=== PATIENT | female | born 1935 ===

== ENCOUNTER 2016-11-25 17:23 | Emergency (ER) | payer MEDICARE, OTHER ==
[2016-11-25 18:12] VITALS: BMI 29.2
[2016-11-25 18:17] VITALS: RESP 18; TEMP 98; O2SAT 98
--- NOTE | 2016-11-25 18:26 | ED PDOC ---
Arrival/HPI - General Chief Complaint: Trauma Time Seen by Provider: 11/25/16 18:25 Historian: Patient - History of Present Illness Narrative History of Present Illness (Text): 11/25/16 18:26 This 81 yo female presents to this ED c/o left knee pain x [employer]. Patient stated she tripped and fell down forward, landing left knee first on the floor. Patient stated pain was mild, but pain has worsen, and now she has difficulty ambulating due to pain. Patient stated she drove to this ED. Patient denies head injury, LOC, syncope, dizziness, hip pain, back pain, ankle pain, cp, or sob. Time/Duration: Prior to Arrival Quality: Aching Context: Home Past Medical History - Provider Review Nursing Documentation Reviewed: Yes - Infectious Disease Hx of Infectious Diseases: None - Endocrine/Metabolic Hx Diabetes Mellitus Type 2: Yes - Hematological/Oncological Hx Cancer: Yes (liver CA) - Psychiatric Hx Substance Use: No - Anesthesia Hx Anesthesia: No Family/Social History - Physician Review Nursing Documentation Reviewed: Yes Family/Social History: No Known Family HX Smoking Status: Never Smoked Hx Alcohol Use: No Hx Substance Use: No Allergies/Home Meds Allergies/Adverse Reactions: Allergies No Known Allergies Allergy (Verified 11/25/16 18:12) Review of Systems - Review of Systems Constitutional: Normal. absent: Fatigue, Weight Change Eyes: Normal ENT: Normal Respiratory: Normal. absent: SOB, Cough Cardiovascular: Normal. absent: Chest Pain, Palpitations Gastrointestinal: Normal. absent: Abdominal Pain, Nausea, Vomiting Genitourinary Female: Normal. absent: Dysuria, Frequency, Hematuria Musculoskeletal: Other (left anterior knee pain) Skin: Normal, Other (no abrasion). absent: Rash, Laceration Neurological: Normal. absent: Headache, Dizziness, Focal Weakness, Gait Changes , Speech Changes, Facial Droop, Disequilibrium, Seizure Endocrine: Normal Hemo/Lymphatic: Normal Psychiatric: Normal Physical Exam Vital Signs Temp Pulse Resp BP Pulse Ox 11/25/16 20:00 71 18 149/60 98 11/25/16 18:17 98.0 F 62 18 158/73 H 98 Temperature: Afebrile Blood Pressure: Normal Pulse: Regular Respiratory Rate: Normal Appearance: Positive for: Well-Appearing, Non-Toxic, Comfortable Pain Distress: None Mental Status: Positive for: Alert and Oriented X 3 - Systems Exam Head: Present: Atraumatic, Normocephalic, Other (no raccoon sign. No sanches sign) Pupils: Present: PERRL, Other (no hyphema) Extroacular Muscles: Present: EOMI Conjunctiva: Present: Normal Ears: Present: Normal, NORMAL TM, Normal Canal, Other (No hemotympanum). No: Erythema Mouth: Present: Moist Mucous Membranes Pharnyx: Present: Normal. No: ERYTHEMA, EXUDATE Nose (External): Present: Atraumatic Nose (Internal): Present: Normal Inspection Neck: Present: Normal Range of Motion, Trachea Midline. No: Meningeal Signs, MIDLINE TENDERNESS, Paraspinal Tenderness, Lymphadenopathy Respiratory/Chest: Present: Clear to Auscultation, Good Air Exchange. No: Respiratory Distress, Accessory Muscle Use Cardiovascular: Present: Regular Rate and Rhythm, Normal S1, S2. No: Murmurs Abdomen: Present: Normal Bowel Sounds. No: Tenderness, Distention, Peritoneal Signs Back: Present: Normal Inspection. No: CVA Tenderness Upper Extremity: Present: Normal Inspection, Normal ROM, NORMAL PULSES, Neurovascularly Intact, Capillary Refill < 2s. No: Cyanosis, Edema Lower Extremity: Present: NORMAL PULSES, Tenderness (Mild tenderness left anterior knee, mild swelling. No abrasion or ceelulitis. Anterior and posterior knee drawer test was negative. No septic knee joint. ROM decreased due to pain.), Neurovascularly Intact, Capillary Refill < 2 s. No: Edema, CALF TENDERNESS, Normal ROM Neurological: Present: GCS=15, CN II-XII Intact, Speech Normal, Motor Func Grossly Intact, Normal Sensory Function, Normal Cerebellar Funct, Norm Deep Tendon Reflexes, Gait Normal, Memory Normal Skin: Present: Warm, Dry, Normal Color. No: Rashes Psychiatric: Present: Alert, Oriented x 3, Normal Insight, Normal Concentration Medical Decision Making ED Course and Treatment: 11/25/16 19:40 Re-evaluation. Patient feels better. Discussed results and plan with patient who expresses understanding. All questions answered and there is agreement with the plan to discharge home with instructions. Patient stable for discharge. Return if symptoms persist or worsen. Knee immobilizer was ordered. Patient was advised not to drive while wearing knee immobilizer. Patient understands to f/u orthopedist for revaluation. Re-evaluation Time: 19:42 Reassessment Condition: Re-examined, Improved - RAD Interpretation Narrative RAD Interpretations (Text): 11/25/16 19:30 Knee x-rays: (+) Subtle patellar non-displaced Fx. No dislocation Femur x-rays: No fx or dislocation Hip x-rays: No Fx or dislocation Radiology Orders: 11/25/16 18:33 KNEE WITH PATELLA LEFT 3 VIEW [RAD] Stat 11/25/16 18:34 Femur Left [FEMUR MIN 2 VIEWS LT] [RAD] Stat Hip Left [HIP MIN 2V W/ PELVIS LT] [RAD] Stat - Medication Orders Current Medication Orders: Discontinued Medications Ibuprofen (Motrin Tab) 600 mg PO STAT STA Stop: 11/25/16 19:59 Last Admin: 11/25/16 20:05 Dose: 600 mg - Procedure PROCEDURE NOTE (Text): 11/25/16 19:43 knee immobilizer Disposition/Present on Arrival - Present on Arrival Any Indicators Present on Arrival: No History of DVT/PE: No History of Uncontrolled Diabetes: No Urinary Catheter: No History of Decub. Ulcer: No History Surgical Site Infection Following: None - Disposition Have Diagnosis and Disposition been Completed?: Yes Diagnosis: Patellar fracture Disposition: HOME/ ROUTINE Disposition Time: 19:44 Patient Plan: Discharge Condition: GOOD Discharge Instructions (ExitCare): Patellar Fracture (ED) Additional Instructions: Call private orthopedist doctor for follow up visit in 1-2 days. Take medication as instructed. Return to emergency if symptoms and pain worsen. Tylenol with Codeine could may feel drowsy, so do not drive or operate machinery when taking Tylenol with Codeine. Prescriptions: Acetaminophen with Codeine [Tylenol with Codeine #3 Tablet] 1 each PO Q6H PRN # 10 tablet PRN Reason: Pain, Severe (8-10) Ibuprofen [Motrin] 400 mg PO Q8H PRN #20 tab PRN Reason: Pain, Severe (8-10) Referrals: Otto Lewis, [Primary Care Provider] - Follow up with primary Darrick Fish MD [Staff Provider] - Follow up with primary
[2016-11-25 20:35] VITALS: BP 149/60; PULSE 71
--- NOTE | 2016-11-26 08:56 | RAD ---
PROCEDURE: Left Knee Radiographs. HISTORY: Pain. COMPARISON: None. FINDINGS: BONES: Nondisplaced transverse patellar fracture junction of inferior and middle thirds. No other fracture identified. JOINTS: Medial osteoarthritis with joint space narrowing. Mild lateral osteoarthritis as well. No articular erosion. JOINT EFFUSION: Small OTHER FINDINGS: None. IMPRESSION: Nondisplaced transverse patellar fracture. Small joint effusion/hemarthrosis.
--- NOTE | 2016-11-26 08:57 | RAD ---
PROCEDURE: Left Femur Radiographs. HISTORY: pain s/p fall COMPARISON: None. TECHNIQUE: AP and Lateral Radiographs of the left femur. FINDINGS: FEMUR: No femoral fracture. Previously noted nondisplaced transverse patellar fracture is again identified in the lateral projection. SOFT TISSUES: Small suprapatellar effusion/ hemarthrosis. OTHER FINDINGS: None. IMPRESSION: Nondisplaced patellar fracture. No other fracture.
--- NOTE | 2016-11-26 08:58 | RAD ---
PROCEDURE: Left Hip X-ray Radiographs. HISTORY: pain COMPARISON: None. FINDINGS: BONES: Normal. No fracture. JOINTS: Normal. SOFT TISSUES: Normal. OTHER FINDINGS: None. IMPRESSION: Normal left hip radiographs.
== END 2016-11-25 20:35 | disposition home or self-care (01) ==
LOC: ED 17:23
DX: S82.002A Unspecified fracture of left patella, initial encounter for closed fracture (principal); W01.0XXA Fall on same level from slipping, tripping and stumbling without subsequent striking against object, initial encounter; Y93.89 Activity, other specified; Y92.89 Other specified places as the place of occurrence of the external cause